=== PATIENT | male | born 2000 | race Caucasian/White ===

== ENCOUNTER 2021-06-19 14:10 | Emergency (ER) | payer OTHER ==
[~2021-06-19] VITALS: Ht 180.3 cm; Wt 77.3 kg
[2021-06-19] MEDS ORDERED: TETANUS/DIPHTHERIA TOX ADSORB ADULT 0.5ML SYR/VIAL (90714) IM ONE (15:50)
[2021-06-19] MEDS ORDERED: TETANUS IMMUNE GLOBULIN (HUMAN) 250 UNITS/ML SYRINGE (J1670)(90389) IM ONE (15:50)
--- NOTE | 2021-06-19 15:56 | REP ---
INDICATION: penetrating trauma with nail gun. COMPARISON: None. TECHNIQUE: Three views were obtained FINDINGS: A nail is in place in the lateral aspect of the ankle extending into the talus. IMPRESSION: The nail gun is penetrating the ankle from lateral approach into the talus. <Electronically signed by Adilson Cedeño > 06/19/21 [id number]
--- NOTE | 2021-06-19 15:57 | REP ---
INDICATION: penetrating trauma with nail gun. COMPARISON: None. TECHNIQUE: Three views FINDINGS: A nail penetrates the foot from lateral approach and the tip appears to pass into the joint between the calcaneus, navicular and cuboid without definite bone involvement. No fractures are evident. IMPRESSION: Nail penetrating into the hindfoot soft tissues without definite bone penetration. <Electronically signed by Adilson Cedeño > 06/19/21 [id number]
[2021-06-19] MEDS ORDERED: AMPICILLIN SOD/SULBACTAM SOD 3 GM in D5W MINI-BAG PLUS 100 ML IV ONE (16:25)
[2021-06-19] MEDS ORDERED: LIDOCAINE 2% MDV 20ML VIAL SC ONE (16:40)
[2021-06-19] MEDS ORDERED: CEPH500C PO (17:40)
== END 2021-06-19 18:14 | disposition home or self-care (01) ==
LOC: M ED 14:10
DX: S91.001A Unspecified open wound, right ankle, initial encounter (principal); W45.0XXA Nail entering through skin, initial encounter; Y92.89 Other specified places as the place of occurrence of the external cause; Y99.0 Civilian activity done for income or pay
CPT/HCPCS: 73610; 73630; 90471; 90714; 96365; 96372; 99284; J1670

== ENCOUNTER → 2021-06-22 | Outpatient (CLI) | payer OTHER ==
[~2021-06-22] MED LIST: CEPH500C PO
--- NOTE | 2021-06-22 10:33 | REP ---
INDICATION: PUNCTURE WOUND RIGHT FOOT. COMPARISON: None. TECHNIQUE: Three views FINDINGS: There is no fracture, dislocation or abnormality of bone texture. There is soft tissue swelling on the plantar aspect of the forefoot and on the dorsum of the foot. There is no radiopaque foreign body. IMPRESSION: Soft tissue swelling. No bony abnormality. No radiopaque foreign body. <Electronically signed by Adilson Cedeño > 06/22/21 1021
== END ==
LOC: M SOG 09:45
PROVIDERS: ATTEND Orthopaedic Surgery Sports Medicine
DX: S91.031A Puncture wound without foreign body, right ankle, initial encounter (principal)